=== PATIENT | male | born 2000 | race Caucasian/White ===

== ENCOUNTER 2022-10-31 15:27 | Emergency (ER) | payer BC ==
[2022-10-31] MEDS ORDERED: Ondansetron 4 MG Tab.DIS PO ONE (15:58)
== END 2022-10-31 17:50 | disposition home or self-care (01) ==
LOC: JD.ED 15:27
DX: K52.9 Noninfective gastroenteritis and colitis, unspecified (principal); Z88.0 Allergy status to penicillin; Z88.2 Allergy status to sulfonamides; Z91.038 Other insect allergy status; Z87.891 Personal history of nicotine dependence
CPT/HCPCS: 36415; 80053; 85025; 86140; 99284; A9270; 99283